=== PATIENT | female | born 1990 | race Caucasian/White ===

== ENCOUNTER 2023-03-07 08:43 | Outpatient (CLI) | payer OTHER, SELFPAY ==
[2023-03-07] VITALS (23 sets, daily range): BP systolic 131–166; BP diastolic 88–113; PULSE 88–124; O2SAT 97–99; BMI 30.4
--- NOTE | 2023-03-07 09:10 | PC.NURSE ---
Dr. Luna called to check on pt and informed of initial severe BP. Orders received.
[2023-03-07 09:28] LABS: Basophils Percent Auto 0.5 % (0.2-1.2); Eosinophils Absolute Auto 0.1 K/mm3 (0-0.3); Eosinophils Percent Auto 0.7 % (0-4.4); Hematocrit 30.3 % (37.0-47.0); Hemoglobin 10.6 g/dL (12.0-15.0); Immature Granulocyte Absolute 0.05 K/mm3 (0.00-0.031); Immature Granulocyte Percent A 0.6 % (0-0.5); Lymphocytes Absolute Auto 2.03 K/mm3 (0.9-3.2); Mean Corpuscular Volume 85.8 fl (80-100); Mean Platelet Volume 10.3 fl (7.4-10.4); Monocytes Absolute Auto 0.7 K/mm3 (0.1-0.6); Monocytes Percent Auto 7.8 % (2.6-8.5); Neutrophils Absolute Auto 5.6 K/mm3 (1.3-6.7); Neutrophils Percent Auto 66.4 % (45.5-73.1); Platelet Count Result 161 k/mm3 (150-375); Red Blood Count 3.53 M/mm3 (4.2-5.4); Red Cell Distribution Width 13.6 % (11.5-14.5); White Blood Count 8.5 K/mm3 (4.5-10.0)
--- NOTE | 2023-03-07 09:29 | PC.NURSE ---
Dr. Luna informed 2nd BP is 152/107. would still like both the IV and PO Labetalol.
[2023-03-07] MEDS: LABETALOL HCL 100 MG TABLET 200 MG PO (09:30)
[2023-03-07] MEDS: LABETALOL HCL INJ 100 MG/20 ML VIAL 20 MG IV PUSH (09:32)
[2023-03-07 09:51] LABS: Alanine Aminotransferase 20 U/L (6-35); Albumin Level 3.6 g/dL (3.5-5.1); Alkaline Phosphatase 163 U/L (38-126); Anion Gap 5 mmol/L (8-16); Aspartate Amino Transferase 27 U/L (14-36); Bilirubin,Total 0.5 mg/dL (0.2-1.3); Blood Urea Nitrogen 5 mg/dL (7-17); Calcium 8.3 mg/dL (8.4-10.2); Carbon Dioxide 22 mmol/L (22-30); Chloride 107 mmol/L (98-107); Estimated CRCL calculation 136 ml/min; Estimated Glomerular Filt Rate > 60; Glucose 94 mg/dL (65-110); Potassium 3.7 mmol/L (3.4-5.0); Sodium 134 mmol/L (137-145)
[2023-03-07 10:05] LABS: Creatinine Urine 125.7 mg/dL; Total Protein Urine Random 32 mg/dL; Ur Ttl Prot Creatinine Ratio 0.25 mg/mg (0-0.20)
[2023-03-07 10:16] LABS: Appearance Urine Clear (Clear); Bacteria Urine Rare /hpf; Bilirubin Urine Negative (Negative); Blood Urine Negative (Negative); Color Urine Yellow (Yellow); Glucose Urine UA Negative (Negative); Ketones Urine Negative (Negative); Leukocyte Esterase Ur 3+ LEU/UL (Negative); Need Manual Microscopic Reviewed; Nitrate Urine Negative (Negative); Non Pathogenic Casts 0-2; Protein Urine 1+ mg/dL (Negative); RBC Urine 0-2 /hpf (0-2); Specific Grav Ur 1.015 (1.001-1.035); Squamous Epithelial Cell Urine Moderate /hpf (Few); WBC Urine 0-5 /hpf
[2023-03-07 10:21] LABS: Add Urine Microscopic? YES
--- NOTE | 2023-03-07 10:29 | PC.NURSE ---
Dr. Luna informed of lab results and improvement in BP's. Order received for discharge. MD will add Labetalol twice daily to home meds. Pt has a BP cuff at home and he will monitor BP's closely.
== END 2023-03-07 10:48 | disposition home or self-care (01) ==
LOC: ANHOBOP 08:54 → ANHOBPP 08:54
PROVIDERS: Student in an Organized Health Care Education/Training Program; Visit Provider Obstetrics & Gynecology
DX: O13.9 Gestational [pregnancy-induced] hypertension without significant proteinuria, unspecified trimester (principal); Z3A.00 Weeks of gestation of pregnancy not specified
CPT/HCPCS: 36415; 59025; 80053; 81001; 82570; 84156; 84550; 85025; 96374; 99199; A9270

== ENCOUNTER 2023-03-14 13:34 | Outpatient (RCR) | payer OTHER, SELFPAY ==
[2023-03-13] MEDS: BETAMETHASONE SOD PHOS/ACETATE 30 MG/5 ML VIAL 12 MG IM (17:51)
--- NOTE | 2023-03-13 19:29 | PC.NURSE ---
1839- notified of pt lab results and he viewed tracing. Instructed to send pt home with instructions on when to return. Pt verbalizes understanding and has no questions or concerns.
[2023-03-14] MEDS: BETAMETHASONE SOD PHOS/ACETATE 30 MG/5 ML VIAL 12 MG IM (14:16)
== END 2023-03-14 16:30 | disposition home or self-care (01) ==
LOC: ANHOBOP 13:34
PROVIDERS: Visit Provider Obstetrics & Gynecology
DX: O16.3 Unspecified maternal hypertension, third trimester (principal); O30.003 Twin pregnancy, unspecified number of placenta and unspecified number of amniotic sacs, third trimester; Z3A.31 31 weeks gestation of pregnancy
CPT/HCPCS: 59025; 96372; J0702

== ENCOUNTER 2023-04-08 15:45 | Outpatient (RCR) | payer OTHER, SELFPAY ==
[2023-03-13 18:05] LABS: Alanine Aminotransferase 27 U/L (6-35); Albumin Level 3.4 g/dL (3.5-5.1); Alkaline Phosphatase 151 U/L (38-126); Anion Gap 6 mmol/L (8-16); Aspartate Amino Transferase 28 U/L (14-36); Bilirubin,Total 0.5 mg/dL (0.2-1.3); Blood Urea Nitrogen 14 mg/dL (7-17); Calcium 9.1 mg/dL (8.4-10.2); Carbon Dioxide 22 mmol/L (22-30); Chloride 106 mmol/L (98-107); Estimated Glomerular Filt Rate > 60; Glucose 81 mg/dL (65-110); Potassium 4.3 mmol/L (3.4-5.0); Sodium 134 mmol/L (137-145); Uric Acid 4.3 mg/dL (2.5-7.5)
[2023-03-13 18:08] LABS: Basophils Percent Auto 0.5 % (0.2-1.2); Eosinophils Absolute Auto 0.1 K/mm3 (0-0.3); Hematocrit 31.1 % (37.0-47.0); Hemoglobin 10.4 g/dL (12.0-15.0); Immature Granulocyte Absolute 0.04 K/mm3 (0.00-0.031); Immature Granulocyte Percent A 0.6 % (0-0.5); Lymphocytes Absolute Auto 1.45 K/mm3 (0.9-3.2); Lymphocytes Percent Auto 23.4 % (18.3-44.2); Mean Corpuscular HGB Conc 33.4 g/dl (32-36); Mean Corpuscular Hemoglobin 30.2 pg (26-34); Mean Corpuscular Volume 90.4 fl (80-100); Mean Platelet Volume 10.7 fl (7.4-10.4); Monocytes Absolute Auto 0.6 K/mm3 (0.1-0.6); Neutrophils Absolute Auto 4.1 K/mm3 (1.3-6.7); Neutrophils Percent Auto 65.5 % (45.5-73.1); Platelet Count Result 159 k/mm3 (150-375); Red Blood Count 3.44 M/mm3 (4.2-5.4); Red Cell Distribution Width 13.4 % (11.5-14.5); White Blood Count 6.2 K/mm3 (4.5-10.0)
[2023-03-13 18:17] LABS: Creatinine Urine 71.9 mg/dL; Total Protein Urine Random 16 mg/dL; Ur Ttl Prot Creatinine Ratio 0.22 mg/mg (0-0.20)
[2023-03-14 14:23] VITALS: BP 120/79; PULSE 93
[2023-03-19 18:15] VITALS: BP 136/83; PULSE 83
[2023-03-22 12:09] VITALS: BP 136/87; PULSE 82
[2023-03-25 12:51] VITALS: BP 138/83; PULSE 75
[2023-03-28 13:02] VITALS: BP 143/86; PULSE 75
[2023-03-31 19:24] VITALS: BP 139/89; PULSE 85
[2023-04-03 11:07] VITALS: BP 140/90; PULSE 75
[2023-04-08 17:09] LABS: Creatinine Urine 210.6 mg/dL; Total Protein Urine Random 171 mg/dL; Ur Ttl Prot Creatinine Ratio 0.81 mg/mg (0-0.20)
[2023-04-08 17:19] VITALS: BP 139/92; PULSE 87
== END 2023-06-11 23:59 | disposition home or self-care (01) ==
LOC: ANHOBOP 15:45
PROVIDERS: Visit Provider Obstetrics & Gynecology
DX: O16.3 Unspecified maternal hypertension, third trimester (principal); O30.003 Twin pregnancy, unspecified number of placenta and unspecified number of amniotic sacs, third trimester; Z3A.31 31 weeks gestation of pregnancy; Z3A.32 32 weeks gestation of pregnancy; Z3A.33 33 weeks gestation of pregnancy; Z3A.34 34 weeks gestation of pregnancy; Z3A.35 35 weeks gestation of pregnancy
CPT/HCPCS: 36415; 59025; 80053; 82570; 84156; 84550; 85025; 96372; J0702

== ENCOUNTER 2023-04-10 00:31 | Inpatient (IN) | payer OTHER, SELFPAY ==
[2023-04-10] VITALS (160 sets, daily range): BP systolic 111–170; BP diastolic 69–121; PULSE 31–159; RESP 15–20; TEMP 36.2–37.1; O2SAT 84–100; BMI 32.5
--- NOTE | 2023-04-10 00:31 | LDADM ---
This patient, Marjorie Luna, was admitted to Labor/Delivery/Recovery 103 on 04/10/23 at 00:31. Plans for labor, pain management and were discussed with patient. Patient/family oriented to hospital policies and general routines including ID bracelet, bed and alarms, visiting hours, pain management, procedures, bathroom and other care routines, personal items, smoking policy, room service/diet and guest tray routines, infant security routines, and visiting hours. Patient/Family are encouraged to report perceived risks to care and to ask questions if they do not understand what they are told or what they should do. See OBIX for further documentation.
[2023-04-10 01:18] LABS: Basophils Percent Auto 0.5 % (0.2-1.2); Eosinophils Absolute Auto 0.1 K/mm3 (0-0.3); Eosinophils Percent Auto 1.2 % (0-4.4); Hematocrit 35.3 % (37.0-47.0); Hemoglobin 11.8 g/dL (12.0-15.0); Immature Granulocyte Absolute 0.03 K/mm3 (0.00-0.031); Immature Granulocyte Percent A 0.5 % (0-0.5); Lymphocytes Absolute Auto 1.81 K/mm3 (0.9-3.2); Lymphocytes Percent Auto 31.3 % (18.3-44.2); Mean Corpuscular HGB Conc 33.4 g/dl (32-36); Mean Corpuscular Volume 86.7 fl (80-100); Monocytes Absolute Auto 0.5 K/mm3 (0.1-0.6); Monocytes Percent Auto 8.1 % (2.6-8.5); Neutrophils Absolute Auto 3.4 K/mm3 (1.3-6.7); Neutrophils Percent Auto 58.4 % (45.5-73.1); Platelet Count Result 135 k/mm3 (150-375); Red Blood Count 4.07 M/mm3 (4.2-5.4); Red Cell Distribution Width 13.5 % (11.5-14.5); White Blood Count 5.8 K/mm3 (4.5-10.0)
[2023-04-10] MEDS: OXYTOCIN 30 UNITS/NS 500 ML 30 UNITS/500 ML BAG IV CONT (01:25)
[2023-04-10] MEDS: LACTATED RINGERS 1,000 ML 125 ML IV CONT ×2 (01:25→06:06)
[2023-04-10 01:31] LABS: Alanine Aminotransferase 31 U/L (6-35); Albumin Level 3.5 g/dL (3.5-5.1); Alkaline Phosphatase 358 U/L (38-126); Anion Gap 9 mmol/L (8-16); Aspartate Amino Transferase 35 U/L (14-36); Bilirubin,Total 0.4 mg/dL (0.2-1.3); Blood Urea Nitrogen 17 mg/dL (7-17); Calcium 8.8 mg/dL (8.4-10.2); Carbon Dioxide 20 mmol/L (22-30); Chloride 105 mmol/L (98-107); Estimated CRCL calculation 82 ml/min; Estimated Glomerular Filt Rate > 60; Glucose 86 mg/dL (65-110); Sodium 134 mmol/L (137-145)
[2023-04-10] MEDS: AMPICILLIN 2 GM/NS 100 ML 2 GM/100 ML BAG IVPB (01:36)
[2023-04-10 02:13] LABS: Uric Acid 7.3 mg/dL (2.5-7.5)
--- NOTE | 2023-04-10 03:51 | WPDANESEPP ---
Anes - Eval Pre Procedure Procedure: labor epidural Date/Time: 04/10/23 03:51 Surgeon: kg Preop Diagnosis: pain during labor Pre Op Diagnosis: Induction of Labor Patient Data Age: 32 Gender: F Height: 1.63 m Weight: 86 kg Last Vital Signs Temp 36.6 C 04/10/23 00:49 Pulse 74 04/10/23 03:30 Resp 15 04/10/23 02:00 BP 138/79 04/10/23 03:30 O2 Del Method Room Air 04/10/23 00:52 Allergies Allergy/AdvReac Type Severity Reaction Status Date / Time No Known Allergies Allergy Verified 04/09/23 13:14 Home Medications Medication Instructions Recorded Confirmed Type vitamins-iron fumarate 65 1 tablet PO DAILY 01/07/23 04/10/23 History mg iron-folic acid 1 mg tablet duloxetine 60 mg capsule,delayed 60 mg PO DAILY #30 caps 01/16/23 04/10/23 Rx release hydralazine 10 mg tablet 10 mg PO QID #120 tabs 01/16/23 04/10/23 Rx famotidine 20 mg tablet (Pepcid) 20 mg PO DAILY 02/04/23 04/10/23 History folic acid 20 mg capsule 20 mg PO DAILY 03/11/23 04/10/23 History labetalol 200 mg tablet 200 mg PO TID 90 days #270 tabs 03/27/23 04/10/23 Rx Laboratory Tests 04/10/23 00:56 WBC 5.8 K/mm3 (4.5-10.0) RBC 4.07 L M/mm3 (4.2-5.4) Hgb 11.8 L g/dL (12.0-15.0) Hct 35.3 L % (37.0-47.0) MCV 86.7 fl (80-100) MCH 29.0 pg (26-34) MCHC 33.4 g/dl (32-36) RDW 13.5 % (11.5-14.5) Plt Count 135 L k/mm3 (150-375) MPV 12.0 H fl (7.4-10.4) Immature Gran % (Auto) 0.5 % (0-0.5) Neut % (Auto) 58.4 % (45.5-73.1) Lymph % (Auto) 31.3 % (18.3-44.2) [place] % (Auto) 8.1 % (2.6-8.5) Eos % (Auto) 1.2 % (0-4.4) Baso % (Auto) 0.5 % (0.2-1.2) Lymph # (Auto) 1.81 K/mm3 (0.9-3.2) [place] # (Auto) 0.5 K/mm3 (0.1-0.6) Eos # (Auto) 0.1 K/mm3 (0-0.3) Baso # (Auto) 0.0 K/mm3 (0.0-0.1) Abs Immat Gran (auto) 0.03 K/mm3 (0.00-0.031) Absolute Neuts (auto) 3.4 K/mm3 (1.3-6.7) Absolute Nucleated RBC 0.0 K/mm3 (0.0-0.012) Nucleated RBC % 0.0 % (0.0-0.2) Sodium 134 L mmol/L (137-145) Potassium 4.0 mmol/L (3.4-5.0) Chloride 105 mmol/L (98-107) Carbon Dioxide 20 L mmol/L (22-30) Anion Gap 9 mmol/L (8-16) BUN 17 mg/dL (7-17) Creatinine 0.90 mg/dL (0.7-1.0) Estim Creat Clear Calc 82 ml/min Estimated GFR > 60 (59 - ) Glucose 86 mg/dL (65-110) Uric Acid 7.3 mg/dL (2.5-7.5) Calcium 8.8 mg/dL (8.4-10.2) Total Bilirubin 0.4 mg/dL (0.2-1.3) AST 35 U/L (14-36) ALT 31 U/L (6-35) Alkaline Phosphatase 358 H U/L (38-126) Total Protein 6.0 L g/dL (6.3-8.2) Albumin 3.5 g/dL (3.5-5.1) RPR Pending Blood Type AB Positive Antibody Screen Negative Patient hx anesthesia problems: none Family hx anesthesia problems: none Results Review: All pre-operative results and documents have been reviewed as part of the pre-operative evaluation. [facility] Past Medical History Medical History Anxiety Gestational hypertension Hypertension Suppression of menstruation Family History Family History Mother Hypertension Father Hypertension Other Breast cancer Social History Social History Smoking status: Never smoker Tobacco type: cigarettes Smoking end date: 11/24/11 Alcohol intake: never Substance use: never Substance use type: does not use Lack of Transportation: No Lack of Food: Never True Current Housing: I Have Housing Concerned About Future Housing: No Difficulty Paying Gas/Electric Bills: No Difficulty Paying for Meds: No Currently Unemployed: No Education: Master's Degree or Higher Difficulty w/ Childcare or Family Care: No Living arrangements: other Additional valorie
[2023-04-10 07:55] LABS: Rapid Plasma Reagin Non-Reactive (NonReactive)
[2023-04-10] MEDS: AMPICILLIN 1 GM/NS 50 ML 1 GM/50 ML BAG IVPB (09:50)
--- NOTE | 2023-04-10 14:09 | WPDHPUPDATE1 ---
History and Physical Update Update Date/Time: 04/10/23 14:09 History and Physical has been reviewed, including an updated exam of the patient. There are NO changes in the patient's condition. Risks, benefits, and alternatives have been discussed and questions answered. Patient agrees to proceed with procedure.
--- NOTE | 2023-04-10 14:09 | WPDOBADMIT ---
Obstetrics - Admit Note Admission Note: record reviewed. No pertinent additions to the history and/or any subsequent changes in the physical findings that are not consistent with the expected course of the were found. Additions to the history and/or subsequent changes in the physical findings follow. None.
--- NOTE | 2023-04-10 14:09 | PM.OBPRVD ---
OB - Delivery Note Procedure Procedure: 1. Spontaneous vaginal delivery of baby A 2. External cephalic version of baby B 3. Vacuum assisted vaginal delivery baby B Events: Breech Presentation, Chronic Hypertension, Multiple Gestation and Preeclampsia w/o severe features Intrapartal Events: Decelerations ( baby B leading to vac placement) Induction method: Per Pitocin Protocol Delivery augmentation: Rupture of Membranes Delivery monitor: External FHT and External Uterine Route of delivery: Episiotomy description: None Laceration Description: None Specimen: Yes Quantitative Blood Loss (ml): 700 Anesthesia type: Epidural Disposition: Floor Complications: None Narrative: patient was brought to the delivery and placed on the operating table. She was placed in the usual position for vaginal delivery and readily delivered viable male infant baby A over intact perineum. Abdominal exam and ultrasound confirmed baby B to be in a breech to transverse position with the vertex in the right upper quadrant. External cephalic version was then undertaken and monitor in heart tones with the ultrasound machine showed no significant deceleration during the procedure and we were able to convert baby B to a vertex presentation. rupture of membranes at this point with clear fluid noted and vertex settling well into the pelvis. Maternal expulsive efforts were not effective in delivering the vertex, and with bradycardic episodes decision was made to place the vacuum. With 2 contractions and the VAC in place baby B was delivered over intact perineum female this female was then passed off to pediatric team in attendance. Both placentas were then delivered and manual sweeping of the uterus to be sure that there was no remaining membrane or tissue. Uterus was well contracted with minimal bleeding and at this point the procedure was considered terminated with both babies being transferred to the nursery and in the care of the selling underwriter who was in attendance. Patient was then sent to recovery room in stable condition. [place] Baby Weeks of gestation at delivery: 35 Infant gender: Male Weight (pounds): 5 Weight (ounces): 12 presentation: vertex Placenta delivery description: Manual Removal Cord Vessel Description: 3 Vessels Twins 2: Weeks of gestation at delivery: 35 Infant gender: Female Weight (pounds): 6 Weight (ounces): 7 presentation: breech ( with external cephalic version /delivered vertex) Placental delivery description: Manual Removal Cord Vessel Description: 3 Vessels [facility] Delivery Billing Delivery Delivery: Delivery Charge
[2023-04-10] MEDS: OXYTOCIN 30 UNITS/NS 500 ML 30 UNITS/500 ML BAG 125 UNITS IV CONT (14:26)
[2023-04-10] MEDS: ceFAZolin 2 GM/D5W 50 ML 2 GM/50 ML BAG IVPB (14:58)
[2023-04-10] MEDS: WITCH HAZEL 40 PADS 1 PAD TOPICAL (16:59)
[2023-04-10] MEDS: IBUPROFEN 600 MG TABLET PO (17:00)
--- NOTE | 2023-04-10 17:35 | OBPPTRN ---
Patient transferred to post room # 279 via wheelchair accompanied by spouse. Pt introductions made and plan of care discussed per post , pain management, breast feeding, daily care activities and infants being transferred to [facility]. PT tearful and crying. Delayed pt orientation to unit, room, information board, rooming in, admission packet and security measures due to PT crying and waiting to talk to [facility]. Patient verbalizes understanding.
[2023-04-10] MEDS: hydrALAZINE 10 MG TABLET PO (18:04)
[2023-04-10] MEDS: LABETALOL HCL 100 MG TABLET 200 MG PO (20:37)
[2023-04-10] MEDS: ACETAMINOPHEN 325 MG TABLET 650 MG PO (20:37)
[2023-04-10] MEDS: POLYSACCHARIDE IRON COMPLEX 150 MG CAPSULE PO (20:38)
[2023-04-10] MEDS: DOCUSATE SODIUM 100 MG CAPSULE PO (20:38)
[2023-04-11 00:30] VITALS: BP 128/90; PULSE 83; RESP 18; TEMP 36.8
[2023-04-11 05:25] VITALS: BP 132/94; PULSE 72
[2023-04-11] MEDS: IBUPROFEN 600 MG TABLET PO (05:25)
[2023-04-11 05:26] LABS: Hematocrit 28.9 % (37.0-47.0); Hemoglobin 9.8 g/dL (12.0-15.0)
[2023-04-11 08:35] VITALS: BP 148/96; PULSE 71; RESP 16; TEMP 37; O2SAT 99
--- NOTE | 2023-04-11 09:50 | WPDANLDPN2 ---
Anes-Prog Note L&D Date/Time: 04/11/23 09:50 Comfortable throughout: labor and delivery Neuraxial method: epidural Epidural/Spinal procedure site: clean & non-tender Neuro status: Neuro function grossly intact. Cardiovascular status: normal Respiratory status: normal Airway patency: baseline Mental status: baseline Post-Op hydration status: normal Vital Signs: Last Vital Signs Temp 36.8 C 04/11/23 00:30 Pulse 72 04/11/23 05:25 Resp 18 04/11/23 00:30 BP 132/94 H 04/11/23 05:25 Pulse Ox 100 04/10/23 13:56 O2 Del Method Room Air 04/10/23 00:52 Pain score (VAS): 12/03 I/O: Intake & Output 04/10/23 04/11/23 04/11/23 23:59 07:59 15:59 Intake Total 1200 350 Output Total 621 1275 Balance 579 -925 Post-procedural complaints: none Patient feedback: Patient satisfied with anesthetic care.
[2023-04-11] MEDS: POLYSACCHARIDE IRON COMPLEX 150 MG CAPSULE PO (10:49)
[2023-04-11] MEDS: DOCUSATE SODIUM 100 MG CAPSULE PO (10:49)
[2023-04-11] MEDS: MEASLES,MUMPS,RUBELLA VACCINE 0.5 ML VIAL (10:53)
[2023-04-11 11:45] VITALS: BP 149/95; PULSE 78; RESP 18; TEMP 37.4; O2SAT 100
--- NOTE | 2023-04-11 12:08 | P.DS_ITS ---
DS: Admitting Diagnosis Discharge Date 04/11/2023 Admitting Diagnosis DS: Discharge Diagnosis Discharge Diagnosis (1) , delivered: Code(s): O80 - Encounter for full-term uncomplicated delivery Status: Acute (2) Dichorionic diamniotic twin : Code(s): O30.049 - Twin , dichorionic/diamniotic, unspecified trimester Status: Acute (3) Chronic hypertension: Code(s): I10 - Essential (primary) hypertension Status: Acute (4) Pre-eclampsia added to pre-existing hypertension: Code(s): O11.9 - Pre-existing hypertension with pre-eclampsia, unspecified trimester Status: Acute OB - DS: Summary OB Procedures : None OB Procedures Intrapartum: Spontaneous Vag Delivery OB Procedures: : None Time Spent with Patient Time attestation: Total time spent providing and/or coordinating discharge services: DS: Data Data Completed and Pending Pending studies at discharge: Pending at discharge 04/10/23 13:58 Surgical [PTH] Routine Labs on day of discharge: Labs from last 24 hours 04/11/23 05:21 Hgb 9.8 L Hct 28.9 L Discharge Plan Discharge Discharging Clinician: Iglesia Costa Patient Disposition: Home, Self-Care Activity: as tolerated Diet: as tolerated Patient Instructions: Antibiotic Form Stand Alone Forms: General Discharge Information Follow-up/Referrals: Iglesia Costa MD [Physician] - 3 Weeks Discharge Medications: Continued vit-iron fum-folic ac 65 mg iron- 1 mg tablet 1 tablet PO DAILY duloxetine 60 mg capsule,delayed release(DR/EC) 60 mg PO DAILY Qty: 30 6RF hydralazine 10 mg tablet 10 mg PO QID Qty: 120 5RF famotidine [Pepcid] 20 mg tablet 20 mg PO DAILY labetalol 200 mg tablet 200 mg PO TID 90 Days Qty: 270 3RF Discontinued folic acid 20 mg capsule 20 mg PO DAILY Date of admission: 04/10/23 00:31 Primary Care Provider: PHYSICIAN,[employer] Admitting Provider: Iglesia Costa Attending physician on admission: Iglesia Costa Condition: Stable
[2023-04-12 07:43] VITALS: BP 134/90; PULSE 75; RESP 20; TEMP 37.1; O2SAT 100
== END 2023-04-11 12:30 | disposition home or self-care (01) | DRG 807 ==
LOC: ANHLDR 00:35 → ANHOB2 17:51
PROVIDERS: Admitting Provider Obstetrics & Gynecology; Visit Provider Obstetrics & Gynecology
DX: O30.043 Twin pregnancy, dichorionic/diamniotic, third trimester (principal); Z37.2 Twins, both liveborn; Z3A.35 35 weeks gestation of pregnancy; O11.4 Pre-existing hypertension with pre-eclampsia, complicating childbirth; O36.8332 Maternal care for abnormalities of the fetal heart rate or rhythm, third trimester, fetus 2; O32.1XX2 Maternal care for breech presentation, fetus 2
CPT/HCPCS: 36415; 80053; 84550; 85014; 85018; 85025; 86592; 86850; 86900; 86901; 88307; 90710; A9270; J0290; J0690; J2590; J2795; J7120

== ENCOUNTER 2024-10-07 01:45 | Day surgery (SDC) | payer OTHER, SELFPAY ==
[2024-09-29 14:56] VITALS: BMI 25.0
--- NOTE | 2024-09-29 15:04 | SUR.PREOP ---
Report to the Outpatient Waiting Room, entrance under the green pavilion located off [facility], at time 0930 on date 10/07/24. Planned Procedure Time: 1130.? Time changes happen often and if your time is changed the preop area will call you the afternoon before. - You and your visitor will be asked to self-screen and do not enter if you have any COVID symptoms. Please call surgeon if you need to reschedule. - A mask is optional within the hospital at this time. Patients may have clear liquids (water, carbonated beverages, clear teas, apple juice) until 3 hours prior to surgery with a maximum of 20 ounces. - No food from midnight until time of surgery and no smoking - Infants may have breast milk until 4 hours before surgery, infant formula 6 hours prior to surgery. - Children will be allowed to drink immediately following surgery.? If applicable, please bring a bottle or sippy cup to assist with drinking. Juice, water, soda, and popsicles are readily available.? For infants on formula, please bring formula the day of surgery.? Pacifiers are allowed. Take only the following medications with a SIP of water on the morning of surgery: duloxetine DO NOT STOP ANY OF YOUR OTHER PRESCRIPTION MEDICATIONS PRIOR TO SURGERY EXCEPT THE FOLLOWING Medications to discontinue per physician losartan Date to take last dose Please no make-up, nail hungarian, hairspray, perfume, deodorant, or body powder the day of surgery.? No jewelry (including any body piercings) or valuables the day of surgery, leave them at home.? Please take a shower or bath the night before, or the morning of, surgery with an antibacterial soap.? Wear comfortable, loose fitting clothing.? Children are encouraged to wear pajamas. - Jewelry must be removed prior to entering the operating room.? Rings and piercings that are not removed may be cut off. - The hospital will not accept responsibility for valuables.? - Please leave all valuables, including medications, at home the day of surgery. If you are going home after surgery, a licensed bellman driver must drive you home.? - NO public transportation without another adult if you receive anesthesia. - We recommend that an adult stay with you for 24 hours following discharge. - We also recommend that you do not drive, make important decision, drink alcoholic beverages, or take any drugs that were not prescribed by your health care provider for at least 24 hours after your discharge time. For Pediatric surgeries, we recommend two adults accompany the child home. Follow any additional instructions given to you from your surgeon. Telephone instructions given to _patient_and asked if any additional questions and then verbalized understanding. Patient advised to call surgeon office or pre surgery nurse liaison [phone] if any additional questions.
--- NOTE | 2024-10-06 09:09 | P.HP_ITS ---
H&P: HPI History of Present Illness Date/Time: 10/06/24 09:09 34-year-old female presents for treatment of heavy vaginal bleeding. She is not currently on control as her has had a vasectomy, and since that last delivery she is not having cycles lasting up to 7 days with 3-4 days very heavy. On the heavy days she is changing a super tampon hourly and still at sometimes does bleed through. No significant bleeding or pain at any other time during her cycle. Chief Complaint: Menorrhagia Review of Systems Review of Systems: All systems reviewed & are unremarkable except as noted in HPI and below PMFSH Past Medical History Medical History Anxiety Gestational hypertension Hypertension Suppression of menstruation Family History Family History Mother Hypertension Father Hypertension Other Breast cancer Social History Social History Smoking status: Never smoker Tobacco type: cigarettes Smoking end date: 11/24/11 Alcohol intake: current Alcohol use details: 1 -2 a month Substance use: never Substance use type: does not use Do You Feel Safe in your Home?: Yes Lack of Transportation: No Lack of Food: Never True Current Housing: I Have Housing Concerned About Future Housing: No Difficulty Paying Gas/Electric Bills: No Difficulty Paying for Meds: No Currently Unemployed: No Education: Master's Degree or Higher Difficulty w/ Childcare or Family Care: No Living arrangements: with family Additional living arrangements comments: Occupation/Education: occupation Additional occupation/education comments: Education Gender identity (if verbalized by the patient): Female Sexual Orientation (if Verbalized by the Patient): Straight or Heterosexual Spiritual care concerns: No Meds Home Medications and Allergies Home Medications Medication Instructions Recorded Confirmed Type losartan 25 mg tablet 25 mg PO DAILY #90 tabs 04/05/24 09/29/24 Rx duloxetine 60 mg capsule,delayed 60 mg PO DAILY 09/29/24 09/29/24 History release Allergies Allergy/AdvReac Type Severity Reaction Status Date / Time No Known Allergies Allergy Verified 08/17/24 09:03 Exam Resp: Effort & Inspection: normal respiratory effort Auscultation: clear to auscultation bilaterally Cardio: Rate: regular rate Rhythm: regular rhythm GI: Inspection: normal to inspection Auscultation: normal bowel sounds : External Female Exam: normal external appearance Speculum Exam - Vagin a: normal appearance of the vagina Speculum Exam - Cervix: normal appearance of the cervix Bimanual exam- vagina & uterus: normal bimanual exam Bimanual Exam- Adnexa, other: normal adnexae Assessment and Plan Assessment and plan (1) Menorrhagia: Code(s): N92.0 - Excessive and frequent menstruation with regular cycle Status: Acute Assessment and Plan: 1. Hysteroscopy with uterine curettings 2. Endometrial ablation
--- NOTE | 2024-10-07 07:14 | WPDHPUPDATE1 ---
History and Physical Update Update Date/Time: 10/07/24 07:14 History and Physical has been reviewed, including an updated exam of the patient. There are NO changes in the patient's condition. Risks, benefits, and alternatives have been discussed and questions answered. Patient agrees to proceed with procedure.
[2024-10-07 09:29] LABS: Hemoglobin 12.3 g/dL (12.0-15.0); Mean Corpuscular HGB Conc 33.2 g/dl (32-36); Mean Corpuscular Hemoglobin 28.8 pg (26-34); Mean Corpuscular Volume 86.7 fl (80-100); Mean Platelet Volume 9.6 fl (7.4-10.4); Platelet Count Result 170 k/mm3 (150-375); Red Blood Count 4.27 M/mm3 (4.2-5.4); Red Cell Distribution Width 12.6 % (11.5-14.5); White Blood Count 3.5 K/mm3 (4.5-10.0)
[2024-10-07 09:38] VITALS: BP 124/82; PULSE 85; RESP 16; TEMP 36.4; O2SAT 99
[2024-10-07] MEDS: ACETAMINOPHEN 500 MG TABLET 1000 MG PO (09:44)
--- NOTE | 2024-10-07 10:16 | P.PNAN_ITS ---
Anes - Initial Pre Proc Eval Procedure: Operation Date: 10/07/24 10:30 Proposed Procedures p Hysteroscopy, Alcira Endometrial Ablation - Iglesia Costa MD Date/Time: 10/07/24 10:16 Surgeon: Iglesia Costa MD Pre Op Diagnosis: abn uterine bleeding Patient Data Age: 34 Gender: F Height: 1.65 m Weight: 66.8 kg Last Vital Signs Temp 36.4 C L 10/07/24 09:38 Pulse 85 10/07/24 09:38 Resp 16 10/07/24 09:38 BP 124/82 10/07/24 09:38 Pulse Ox 99 10/07/24 09:38 O2 Del Method Room Air 10/07/24 09:38 Allergies Allergy/AdvReac Type Severity Reaction Status Date / Time No Known Allergies Allergy Verified 10/07/24 10:07 Home Medications Medication Instructions Recorded Confirmed Type losartan 25 mg tablet 25 mg PO DAILY #90 tabs 04/05/24 10/07/24 Rx duloxetine 60 mg capsule,delayed 60 mg PO DAILY 09/29/24 10/07/24 History release Laboratory Tests 10/07/24 09:14 WBC 3.5 L K/mm3 (4.5-10.0) RBC 4.27 M/mm3 (4.2-5.4) Hgb 12.3 g/dL (12.0-15.0) Hct 37.0 % (37.0-47.0) MCV 86.7 fl (80-100) MCH 28.8 pg (26-34) MCHC 33.2 g/dl (32-36) RDW 12.6 % (11.5-14.5) Plt Count 170 k/mm3 (150-375) MPV 9.6 fl (7.4-10.4) Patient hx anesthesia problems: none Family hx anesthesia problems: none Results Review: All pre-operative results and documents have been reviewed as part of the pre- operative evaluation. [facility] Past Medical History Medical History Anxiety Gestational hypertension Hypertension Suppression of menstruation Family History Family History Mother Hypertension Father Hypertension Other Breast cancer Social History Social History (Reviewed 10/07/24 @ 10:17 by GUILLE Padron Smoking status: Never smoker Tobacco type: cigarettes Smoking end date: 11/24/11 Alcohol intake: current Alcohol use details: 1 -2 a month Substance use: never Substance use type: does not use Do You Feel Safe in your Home?: Yes Lack of Transportation: No Lack of Food: Never True Current Housing: I Have Housing Concerned About Future Housing: No Difficulty Paying Gas/Electric Bills: No Difficulty Paying for Meds: No Currently Unemployed: No Education: Master's Degree or Higher Difficulty w/ Childcare or Family Care: No Living arrangements: with family Additional living arrangements comments: Occupation/Education: occupation Additional occupation/education comments: Education Gender identity (if verbalized by the patient): Female Sexual Orientation (if Verbalized by the Patient): Straight or Heterosexual Spiritual care concerns: No Anes - Eval Final PreProcedure Day of Procedure 10/07/24 10:16 Patient weight: normal Heart: regular rate and rhythm Lungs: clear to auscultation Airway: Mallampati scale class II Neurological: alert and oriented Last oral intake: >/= 8 hours ASA classification: II Emergent: no Anesthetic plan: proceed Anesthesia type and monitoring: general GIVS and standard monitoring Results Review: All pre-operative results and documents have been reviewed as part of the pre- operative evaluation. Informed Consent: The patient's anesthetic plan and its attendant risks and benefits were discussed with the patient/family/POA. Questions were solicited and answers provided to the satisfaction of the patient/family/POA.
[2024-10-07] MEDS: ceFAZolin 2 GM/D5W 50 ML 2 GM/50 ML BAG IVPB (10:24)
--- NOTE | 2024-10-07 10:47 | W.PM.PROC2 ---
Procedure Note - Detailed Date of Procedure 10/07/24 Pre-op Diagnosis 1. Menometrorrhagia 2. Dysmenorrhea Post-op Diagnosis Same Procedure Performed 1. Hysteroscopy with uterine curettings 2. Alcira endometrial ablation Surgeon Iglesia Costa MD Anesthesia MAC Findings Slightly thickened endometrial cavity, no other abnormalities appreciated. Description of Procedure Patient was prepped and draped in usual manner for this procedure. Cervix was dilated to allow the hysteroscope to be placed which did reveal slightly thickened tissue as noted above. Curettings were obtained, Alcira instrument was placed and cavity assessment was performed. Once this was performed adequately the ablation was undertaken, at the end of procedure hysteroscopic exam revealed good destruction throughout. At this point the procedure was considered terminated patient was sent to recovery room in stable condition. Estimated Blood Loss 10 Drains No Packing No Pathology Yes Complications No immediate complications Condition Stable Disposition PACU [facility] Billing Surgery - Charge Forward: Surgery Billing
[2024-10-07 10:50] VITALS: BP 110/71; PULSE 75; RESP 14; O2SAT 99
[2024-10-07] MEDS: LACTATED RINGERS 1,000 ML 30 ML IV CONT (10:50)
[2024-10-07 11:20] VITALS: BP 100/64; PULSE 68; RESP 16; O2SAT 98
[2024-10-07 11:45] VITALS: BP 103/68; PULSE 68; RESP 16; O2SAT 100
== END 2024-10-07 12:00 | disposition home or self-care (01) ==
PROVIDERS: PCP Family Medicine; Visit Provider Obstetrics & Gynecology
PROC: 0U5B8ZZ Destruction of Endometrium, Via Natural or Artificial Opening Endoscopic (ICD-10-PCS; CPT 58563; principal; 2024-10-07 10:30)
DX: R93.89 Abnormal findings on diagnostic imaging of other specified body structures (principal); I10 Essential (primary) hypertension; F41.9 Anxiety disorder, unspecified; Z80.3 Family history of malignant neoplasm of breast
CPT/HCPCS: 58563; 36415; 85027; 88305; A9270; J0690; J2003; J2250; J2405; J2704; J3010; J7120